=== PATIENT | female | born 1970 | race Two or more races ===

== ENCOUNTER → 2021-01-14 | Outpatient (CLI) | payer OTHER ==
[2021-01-15 08:14] LABS: VITAMIN D, 25-HYDROXY 19.1 ng/mL (30.0-100.0)
[2021-01-15 11:15] LABS: RHEUMATOID ARTHRITIS FACTOR <10.0 IU/mL (0.0-13.9)
[2021-01-17 04:09] LABS: CCP ANTIBODIES IGG/IGA 3 units (0-19)
== END ==
LOC: LAB 12:13
PROVIDERS: Nurse Practitioner Family
DX: M54.9 Dorsalgia, unspecified (principal); M25.562 Pain in left knee; M79.672 Pain in left foot; M25.50 Pain in unspecified joint; R76.8 Other specified abnormal immunological findings in serum; D89.9 Disorder involving the immune mechanism, unspecified
CPT/HCPCS: 36415; 72072; 72100; 73560; 73630; 81001; 82550; 82570; 83520; 84156; 85652; 86140; 86200; 86431